=== PATIENT | male | born 1935 | race Caucasian/White ===

== ENCOUNTER 2020-03-19 14:02 | Inpatient (IN) | payer MEDICARE, OTHER ==
[~2020-03-19] VITALS: Ht 172.7 cm; Wt 74.7 kg
--- NOTE | 2020-03-19 14:02 | NUR ---
INITIAL PT CONTACT. PT FELICITAS FROM [facility] C/O ALTERED MENTAL STATUS. PER MEDICS AND FAMILY PT HAS BEEN EXPERIENCING "RAPIDLY PROGRESSING DEMENTIA OVER THE LAST MONTH. MENTAL STATUS WAS MUCH WORSE THIS AM". PT WAS TRANSFERED PER FAMILY REQUEST AND FOR CT IMAGING FOLLOW UP FOR ISCHEMIC BRAIN CHANGES SEEN TODAY. PT WAS DIAGNOSED WITH UROSEPSIS AND PT WAS GIVEN 250 MG LEVAQUIN AND 1200ML NS AT [facility]. PT WAS ALSO FOUND TO HAVE AN ELEVATED TROPONIN, 0.48. PT HAS A URINARY CATHETER IN PLACE WITH AN OUTPUT OF ABOUT 250ML OF DARK CONCENTRATED URINE UPON ARRIVAL AND DARK DRIED BLOOD AROUND INSERTION SITE. PT UPRIGHT ON GURNEY AND REORIENTED. PT RESTING ON GURNEY WITH EYES CLOSED, NAD. CALL LIGHT WITHIN REACH AND FALL PRECAUTIONS IN PLACE.
--- NOTE | 2020-03-19 14:05 | NUR ---
SEPSIS PROTOCOL DISCUSSED WITH ERP, WILL NOT BE SEPSIS WORKUP PER DR. PERERA
[2020-03-19] MEDS ORDERED: ASPIRIN 325 MG TABLET PO STA (15:07)
[2020-03-19] MEDS ORDERED: ASCO100T5 PO (15:33)
[2020-03-19] MEDS ORDERED: CHOL10003 PO (15:33)
[2020-03-19] MEDS ORDERED: LISI-170 PO (15:33)
[2020-03-19] MEDS ORDERED: ASPI-515 PO (15:33)
[2020-03-19] MEDS ORDERED: AMLO-150 PO (15:33)
[2020-03-19] MEDS ORDERED: NEBI20TA2 PO (15:33)
[2020-03-19] MEDS ORDERED: ASPIRIN 325 MG TABLET ONE (15:35)
--- NOTE | 2020-03-19 15:40 | NUR ---
HOSPITALIST AT BEDSIDE.
--- NOTE | 2020-03-19 15:50 | NUR ---
[facility] -- WILMER WHITNEY -- [phone] NEIGHBOR -- ELISABETH VERGARA -- [phone]
--- NOTE | 2020-03-19 15:51 | NUR ---
Pt to be admitted to TELE 2, room 403-1. Report called to [facility].
[2020-03-19] MEDS ORDERED: ONDANSETRON 4 MG TABLET PO PRN (16:00)
[2020-03-19] MEDS ORDERED: morphine SULFATE 10 MG/ML, 1ML IVPush PRN (16:00)
[2020-03-19] MEDS ORDERED: ONDANSETRON 2MG/ML, 2ML IVPush PRN (16:00)
[2020-03-19] MEDS ORDERED: HEPARIN wt. based STROKE protocol MC PRN (16:00)
[2020-03-19] MEDS: SODIUM CHLORIDE 0.9% 1,000 ML IV SCH (16:00)
[2020-03-19 16:13] LABS: MICROSCOPIC INDICATED
[2020-03-19 16:24] LABS: INTERNATIONAL NORMALIZED RATIO 1.08 (0.93-1.1); PROTHROMBIN TIME 11.1 Seconds (9.6-11.5)
[2020-03-19 16:27] VITALS: BP 115/51
[2020-03-19 16:31] LABS: TROPONIN I 0.619 ng/mL (0.000-0.045)
[2020-03-19] MEDS: CEFTRIAXONE PMX 1GM/50ML 50 ML IV SCH (17:59)
[2020-03-19 19:53] VITALS: BP 133/65
[2020-03-19] MEDS: ATORVASTATIN 80 MG TABLET PO SCH (20:28)
[2020-03-19] MEDS: HEPARIN 25,000 UNITS/250ML PMX 250 ML IV PRN (20:45)
[2020-03-19 20:47] LABS: TROPONIN I 0.726 ng/mL (0.000-0.045)
[2020-03-19 23:41] VITALS: BP 108/68
[2020-03-20] MEDS: ACETAMINOPHEN 650 MG/20.3 ML UDC PO PRN
[2020-03-20] MEDS: SODIUM CHLORIDE 0.9% 1,000 ML IV SCH ×3 (01:40→20:51)
[2020-03-20 01:47] VITALS: BP 117/66
[2020-03-20 03:33] LABS: BASOPHILS % (AUTO) 0 % (0-1); EOSINOPHILS % (AUTO) 0 % (1-7); LYMPHOCYTES % (AUTO) 6 % (22-44); MEAN CORPUSCULAR HEMOGLOBIN 29.4 pg (27.5-34.5); MEAN CORPUSCULAR HGB CONC 32.4 g/dL (33.2-36.2); MEAN PLATELET VOLUME 7.8 fL (7.4-10.4); MONOCYTES % (AUTO) 7 % (2-9); NEUTROPHILS % (AUTO) 87 % (42-75); PLATELET COUNT 146 x10^3/uL (130-400); RED BLOOD COUNT 3.85 x10^6/uL (4.38-5.82)
[2020-03-20 03:46] LABS: ANION GAP 10 mmol/L (5-15); CALCIUM 8.2 mg/dL (8.5-10.1); CHLORIDE 112 mmol/L (98-107); CHOLESTEROL, TOTAL 123 mg/dL (140-239); CREATININE 2.09 mg/dL (0.7-1.3)
[2020-03-20 03:52] LABS: MD SCAN
[2020-03-20 04:00] LABS: CHOL/HDL RATIO 6.5; CREATINE KINASE, TOTAL 1788 U/L (39-308); HDL CHOLESTEROL (DIRECT) 19 mg/dL (40-60); TRIGLYCERIDES 126 mg/dL (50-200); VLDL CHOLESTEROL 25 mg/dL (0-25)
[2020-03-20 04:01] LABS: HDL CHOL % 15 % (26-37); LDL CHOLESTEROL,CALCULATED 79 mg/dL (54-169); LDL/HDL RATIO 4.2 (0.5-3.0)
[2020-03-20 07:27] VITALS: BP 105/51
[2020-03-20] MEDS: ASPIRIN 81 MG TABLET CHEW PO/NG SCH (09:17)
[2020-03-20] MEDS: CHOLECALCIFEROL 1,000 UNIT TABLET PO SCH (09:17)
[2020-03-20] MEDS ORDERED: DAPTOMYCIN 550 MG in SODIUM CHLORIDE 0.9% 100 ML IVPB SCH (11:30)
[2020-03-20 12:14] VITALS: BP 124/56
[2020-03-20] MEDS: HEPARIN 25,000 UNITS/250ML PMX 250 ML IV PRN (17:40)
[2020-03-20] MEDS: CEFTRIAXONE PMX 1GM/50ML 50 ML IV SCH (17:41)
[2020-03-20 18:42] VITALS: BP 125/61
[2020-03-20] MEDS: ATORVASTATIN 80 MG TABLET PO SCH (20:45)
[2020-03-21 00:57] VITALS: BP 136/60
[2020-03-21 03:29] LABS: BASOPHILS % (AUTO) 0 % (0-1); EOSINOPHILS % (AUTO) 0 % (1-7); LYMPHOCYTES % (AUTO) 12 % (22-44); MEAN CORPUSCULAR HEMOGLOBIN 29.9 pg (27.5-34.5); MEAN CORPUSCULAR HGB CONC 33.1 g/dL (33.2-36.2); MEAN PLATELET VOLUME 8.4 fL (7.4-10.4); MONOCYTES % (AUTO) 9 % (2-9); NEUTROPHILS % (AUTO) 79 % (42-75); PLATELET COUNT 137 x10^3/uL (130-400); RED BLOOD COUNT 3.66 x10^6/uL (4.38-5.82); RED CELL DISTRIBUTION WIDTH 15.2 % (9.4-14.8)
[2020-03-21 03:33] LABS: ANION GAP 8 mmol/L (5-15); CALCIUM 7.6 mg/dL (8.5-10.1); CHLORIDE 110 mmol/L (98-107); CHOLESTEROL, TOTAL 109 mg/dL (140-239); CREATININE 1.64 mg/dL (0.7-1.3); MD NO; TRIGLYCERIDES 172 mg/dL (50-200); VLDL CHOLESTEROL 34 mg/dL (0-25)
[2020-03-21 03:35] LABS: CHOL/HDL RATIO 6.8; HDL CHOL % 15 % (26-37); HDL CHOLESTEROL (DIRECT) 16 mg/dL (40-60); LDL CHOLESTEROL,CALCULATED 59 mg/dL (54-169); LDL/HDL RATIO 3.7 (0.5-3.0)
[2020-03-21 06:56] VITALS: BP 120/47
[2020-03-21] MEDS: CHOLECALCIFEROL 1,000 UNIT TABLET PO SCH (09:29)
[2020-03-21] MEDS: ASPIRIN 81 MG TABLET CHEW PO/NG SCH (09:29)
[2020-03-21] MEDS: SODIUM CHLORIDE 0.9% 1,000 ML IV SCH ×2 (09:30→21:40)
[2020-03-21] MEDS: HEPARIN 25,000 UNITS/250ML PMX 250 ML IV PRN ×2 (12:02→19:32)
[2020-03-21 13:04] VITALS: BP 123/55
[2020-03-21] MEDS: POTASSIUM CHLORIDE 20 MEQ TAB.ER.PRT PO SCH (17:57)
[2020-03-21] MEDS: CEFAZOLIN 2,000 MG in SODIUM CHLORIDE 0.9% 50 ML IV SCH (18:01)
[2020-03-21 20:04] VITALS: BP 126/63
[2020-03-21] MEDS: ATORVASTATIN 80 MG TABLET PO SCH (20:17)
[2020-03-22 00:55] VITALS: BP 136/62
[2020-03-22 01:39] LABS: BASOPHILS % (AUTO) 0 % (0-1); EOSINOPHILS % (AUTO) 1 % (1-7); LYMPHOCYTES % (AUTO) 13 % (22-44); MEAN CORPUSCULAR HEMOGLOBIN 29.8 pg (27.5-34.5); MEAN CORPUSCULAR HGB CONC 32.7 g/dL (33.2-36.2); MEAN PLATELET VOLUME 8.5 fL (7.4-10.4); MONOCYTES % (AUTO) 10 % (2-9); NEUTROPHILS % (AUTO) 76 % (42-75); PLATELET COUNT 157 x10^3/uL (130-400); RED BLOOD COUNT 3.45 x10^6/uL (4.38-5.82); RED CELL DISTRIBUTION WIDTH 15.8 % (9.4-14.8)
[2020-03-22 01:46] LABS: ANION GAP 8 mmol/L (5-15); CALCIUM 7.6 mg/dL (8.5-10.1); CHLORIDE 112 mmol/L (98-107); CREATININE 1.35 mg/dL (0.7-1.3)
[2020-03-22 01:48] LABS: MD NO
[2020-03-22] MEDS: HEPARIN 25,000 UNITS/250ML PMX 250 ML IV PRN (02:40)
[2020-03-22] MEDS: CEFAZOLIN 2,000 MG in SODIUM CHLORIDE 0.9% 50 ML IV SCH ×3 (05:41→21:59)
[2020-03-22 06:56] VITALS: BP 117/61
[2020-03-22] MEDS: POTASSIUM CHLORIDE 20 MEQ TAB.ER.PRT PO SCH ×2 (09:28→17:06)
[2020-03-22] MEDS: CHOLECALCIFEROL 1,000 UNIT TABLET PO SCH (09:30)
[2020-03-22] MEDS: ASPIRIN 81 MG TABLET CHEW PO/NG SCH (09:36)
[2020-03-22] MEDS ORDERED: DAPTOMYCIN 500 MG in SODIUM CHLORIDE 0.9% 100 ML IVPB SCH (12:00)
[2020-03-22 12:17] VITALS: BP 94/54
[2020-03-22] MEDS: SODIUM CHLORIDE 0.9% 1,000 ML IV SCH (17:07)
[2020-03-22 18:50] VITALS: BP 127/75
[2020-03-22] MEDS: ATORVASTATIN 80 MG TABLET PO SCH (21:50)
[2020-03-22] MEDS: QUETIAPINE 25MG TABLET PO SCH (21:51)
[2020-03-23 00:02] VITALS: BP 139/67
[2020-03-23] MEDS: SODIUM CHLORIDE 0.9% 1,000 ML IV SCH (02:58)
[2020-03-23] MEDS: CEFAZOLIN 2,000 MG in SODIUM CHLORIDE 0.9% 50 ML IV SCH ×3 (05:22→22:27)
[2020-03-23 06:10] LABS: BASOPHILS % (AUTO) 0 % (0-1); EOSINOPHILS % (AUTO) 1 % (1-7); HCT (SEDRATE) 28.8 % (39.2-51.8); LYMPHOCYTES % (AUTO) 14 % (22-44); MEAN CORPUSCULAR HEMOGLOBIN 28.9 pg (27.5-34.5); MEAN CORPUSCULAR HGB CONC 32.2 g/dL (33.2-36.2); MEAN PLATELET VOLUME 8.6 fL (7.4-10.4); MONOCYTES % (AUTO) 11 % (2-9); NEUTROPHILS % (AUTO) 73 % (42-75); PLATELET COUNT 177 x10^3/uL (130-400); RED CELL DISTRIBUTION WIDTH 15.9 % (9.4-14.8)
[2020-03-23 06:15] LABS: MD NO
[2020-03-23 06:22] LABS: ALANINE AMINOTRANSFERASE 10 U/L (12-78); ALBUMIN 1.9 g/dL (3.4-5.0); ANION GAP 11 mmol/L (5-15); CALCIUM 7.7 mg/dL (8.5-10.1); CHLORIDE 116 mmol/L (98-107); CREATININE 1.21 mg/dL (0.7-1.3)
[2020-03-23 06:26] LABS: ALKALINE PHOSPHATASE 197 U/L (45-117); BILIRUBIN,TOTAL 0.8 mg/dL (0.2-1.0); TOTAL PROTEIN 5.2 g/dL (6.4-8.2); TROPONIN I 0.368 ng/mL (0.000-0.045)
[2020-03-23 06:50] VITALS: BP 133/55
[2020-03-23] MEDS: CHOLECALCIFEROL 1,000 UNIT TABLET PO SCH (09:09)
[2020-03-23] MEDS: POTASSIUM CHLORIDE 20 MEQ TAB.ER.PRT PO SCH ×2 (09:09→17:00)
[2020-03-23] MEDS: ASPIRIN 81 MG TABLET CHEW PO/NG SCH (09:10)
[2020-03-23] MEDS ORDERED: PROPOFOL 10 MG/ML, 20ML ONE (11:50)
[2020-03-23 15:59] VITALS: BP_SYST 133; BP_SYST 167; BP_DIAS 55; BP_DIAS 66
[2020-03-23 19:32] VITALS: BP 144/68
[2020-03-23] MEDS: QUETIAPINE 25MG TABLET PO SCH (21:00)
[2020-03-23] MEDS: ATORVASTATIN 80 MG TABLET PO SCH (21:00)
[2020-03-24] VITALS: BP 143/59
[2020-03-24 05:00] LABS: BASOPHILS % (AUTO) 0 % (0-1); EOSINOPHILS % (AUTO) 0 % (1-7); LYMPHOCYTES % (AUTO) 8 % (22-44); MEAN CORPUSCULAR HEMOGLOBIN 29.3 pg (27.5-34.5); MEAN CORPUSCULAR HGB CONC 32.1 g/dL (33.2-36.2); MEAN PLATELET VOLUME 8.2 fL (7.4-10.4); MONOCYTES % (AUTO) 12 % (2-9); NEUTROPHILS % (AUTO) 80 % (42-75); PLATELET COUNT 234 x10^3/uL (130-400); RED BLOOD COUNT 3.55 x10^6/uL (4.38-5.82); RED CELL DISTRIBUTION WIDTH 15.9 % (9.4-14.8)
[2020-03-24 05:02] LABS: ANION GAP 11 mmol/L (5-15); CALCIUM 8.5 mg/dL (8.5-10.1); CHLORIDE 119 mmol/L (98-107); CREATININE 1.13 mg/dL (0.7-1.3)
[2020-03-24 05:14] LABS: MD NO
[2020-03-24] MEDS: CEFAZOLIN 2,000 MG in SODIUM CHLORIDE 0.9% 50 ML IV SCH ×3 (05:57→22:18)
[2020-03-24 06:44] VITALS: BP 153/55
[2020-03-24] MEDS: POTASSIUM CHLORIDE 20 MEQ TAB.ER.PRT PO SCH ×2 (08:16→18:09)
[2020-03-24] MEDS: CHOLECALCIFEROL 1,000 UNIT TABLET PO SCH (08:16)
[2020-03-24] MEDS: ASPIRIN 81 MG TABLET CHEW PO/NG SCH (08:16)
[2020-03-24] MEDS: ACETAMINOPHEN 650 MG/20.3 ML UDC PO PRN (08:37)
[2020-03-24 13:14] VITALS: BP 144/61
[2020-03-24] MEDS: DOCUSATE 100 MG CAPSULE PO PRN (18:09)
[2020-03-24] MEDS: QUETIAPINE 25MG TABLET PO SCH (21:01)
[2020-03-24] MEDS: ATORVASTATIN 80 MG TABLET PO SCH (21:01)
[2020-03-24 22:02] VITALS: BP 125/57
[2020-03-25 02:09] VITALS: BP 130/57
[2020-03-25] MEDS: CEFAZOLIN PMX 2GM/50ML 50 ML IVPB SCH ×2 (06:24→15:29)
[2020-03-25 08:57] VITALS: BP 128/58
[2020-03-25] MEDS ORDERED: APIXABAN 5 MG TABLET PO SCH (09:00)
[2020-03-25] MEDS: DOCUSATE 100 MG CAPSULE PO PRN (09:03)
[2020-03-25] MEDS: POTASSIUM CHLORIDE 20 MEQ TAB.ER.PRT PO SCH (09:03)
[2020-03-25] MEDS: CHOLECALCIFEROL 1,000 UNIT TABLET PO SCH (09:03)
[2020-03-25] MEDS ORDERED: BISACODYL 10 MG SUPP PR PRN (09:30)
[2020-03-25] MEDS ORDERED: POTA20TA6 PO (11:55)
[2020-03-25] MEDS ORDERED: APIX5TAB PO (11:55)
[2020-03-25] MEDS ORDERED: QUET25TA7 PO (11:55)
[2020-03-25] MEDS ORDERED: ATOR-2 PO (11:55)
[2020-03-25] MEDS ORDERED: BISA10SU4 PR (11:55)
[2020-03-25] MEDS ORDERED: DOCU100C33 PO (11:55)
[2020-03-25] MEDS ORDERED: ACET650S21 PO (11:55)
[2020-03-25] MEDS ORDERED: CEFA2PLA9 IV (11:55)
[2020-03-25] MEDS ORDERED: CHOL10003 PO (11:55)
[2020-03-25] MEDS ORDERED: ONDA-89 PO (11:55)
[2020-03-25 13:16] VITALS: BP 160/71
[2020-03-25] MEDS ORDERED: PINK LADY ENEMA 490 ML BOTTLE PR PRN (13:30)
== END 2020-03-25 17:58 | DRG 871 ==
LOC: ED 14:18 → 4WST 15:04 → 5SO 03-23 11:10
PROVIDERS: ADMIT Family Medicine; ATTEND Internal Medicine
PROC: B24BZZ4 Ultrasonography of Heart with Aorta, Transesophageal (ICD-10-PCS; 2020-03-23)
PROC: 02HV33Z Insertion of Infusion Device into Superior Vena Cava, Percutaneous Approach (ICD-10-PCS; principal; 2020-03-25)
PROC: B5181ZA Fluoroscopy of Superior Vena Cava using Low Osmolar Contrast, Guidance (ICD-10-PCS; 2020-03-25)
PROC: B548ZZA Ultrasonography of Superior Vena Cava, Guidance (ICD-10-PCS; 2020-03-25)
DX: A41.01 Sepsis due to Methicillin susceptible Staphylococcus aureus (principal); G92 Toxic encephalopathy; I63.9 Cerebral infarction, unspecified; N17.0 Acute kidney failure with tubular necrosis; F05 Delirium due to known physiological condition; N39.0 Urinary tract infection, site not specified; Q21.1 Atrial septal defect; Q60.0 Renal agenesis, unilateral; E86.0 Dehydration; I12.9 Hypertensive chronic kidney disease with stage 1 through stage 4 chronic kidney disease, or unspecified chronic kidney disease; N18.30 Chronic kidney disease, stage 3 unspecified; E11.22 Type 2 diabetes mellitus with diabetic chronic kidney disease; E78.5 Hyperlipidemia, unspecified; F03.90 Unspecified dementia, unspecified severity, without behavioral disturbance, psychotic disturbance, mood disturbance, and anxiety; I45.10 Unspecified right bundle-branch block; I48.91 Unspecified atrial fibrillation; L30.9 Dermatitis, unspecified; M10.9 Gout, unspecified; M19.072 Primary osteoarthritis, left ankle and foot; R65.20 Severe sepsis without septic shock; Z60.2 Problems related to living alone; Z20.828 Contact with and (suspected) exposure to other viral communicable diseases; R26.2 Difficulty in walking, not elsewhere classified; Z79.82 Long term (current) use of aspirin; Z82.0 Family history of epilepsy and other diseases of the nervous system; Z82.49 Family history of ischemic heart disease and other diseases of the circulatory system; Z83.3 Family history of diabetes mellitus; Z87.891 Personal history of nicotine dependence; Z88.0 Allergy status to penicillin
CPT/HCPCS: 36415; 36573; 70450; 76775; 80048; 80053; 80061; 81001; 82306; 82550; 82607; 83036; 83735; 84100; 84443; 84484; 85025; 85520; 85610; 85651; 85730; 86140; 87040; 87077; 87086; 87147; 87186; 87635; 93005; 93306; 93312; 93321; 93325; 93880; 93970; 99285; G0378; J0690; J0696; J0878; J2704; 92523-GN; C1751; J7030